=== PATIENT | female | born 1990 | race African-American/Black ===

== ENCOUNTER 2019-03-10 08:57 | Inpatient (IN) | payer MEDICAID ==
[~2019-03-10] VITALS: Ht 162.6 cm; Wt 81.8 kg
[~2019-03-10 08:57] MED LIST: FERROUS SULFAT325 MG PO; IBUPROFEN600 MG PO; PERCOCET 10/3251 TA1 PO; PRENAVITE1 TAB PO
[2019-03-11] VITALS (9 sets, daily range): BP systolic 100–125; BP diastolic 50–80; Ht 162.6 cm; Wt 81.8 kg
[2019-03-11 07:14] LABS: HEMATOCRIT 31.8 % (36.0-48.0); HEMOGLOBIN 10.4 g/dL (12-16); MCH 31.9 pg (26.0-34.0); MCHC 32.7 g/dL (31.0-37.0); MCV 97.5 fL (80.0-100.0); MEAN PLATELET VOLUME 11.1 fL (7.4-10.4); RBC 3.26 10x6/uL (4.00-5.40); WBC 8.1 10x3/uL (4.8-10.8)
--- NOTE | 2019-03-11 12:06 | NUR ---
BLOOD GAS AND CORD BLOOD DRAWN
--- NOTE | 2019-03-11 12:37 | NUR ---
BABY BOY 1201 PLACENTA 1202
--- NOTE | 2019-03-11 13:19 | NUR ---
MEETS ANESTHESIA DISCHARGE CRITERIA
--- NOTE | 2019-03-11 13:34 | NUR ---
to room 1218 via bed from rr. pt awake and alert. verbal responses appro to questions. denies pain - states legs are numb still. fundus uu/firm. scant lochia noted on pad. abd dressing cd&i. ice cap to abd. nino cath intact with yellow urine in container. iv saline lock rt arm. iv fluids of 1000cc ns with 20 units of pitocin infusing at 125cc/hr into lt hand. scd's on.
--- NOTE | 2019-03-11 13:54 | NUR ---
FUNDUS REMAINS UU/FIRM. SMALL LOCHIA NOTED ON PAD.
--- NOTE | 2019-03-11 14:05 | NUR ---
FUNDUS UU/FIRM. SMALL LOCHIA NOTED ON PAD. FAMILY AT BEDSIDE. IN MOTHERS ARMS.
--- NOTE | 2019-03-11 14:39 | NUR ---
STATES IS STILL NUMB. DENIES PAIN.
--- NOTE | 2019-03-11 15:00 | NUR ---
AWAKE AND SITTING UP IN BED. HOB LOWERED. FUNDUS UU/FIRM. SCANT LOCHIA NOTED ON PAD. PAD CHANGED. STATES THAT LEGS REMAIN NUMB.
--- NOTE | 2019-03-11 15:42 | NUR ---
FUNDUS UU/FIRM. SCANT LOCHIA NOTED ON PAD. CONT UNABLE TO MOVE LEGS- NUMB.
--- NOTE | 2019-03-11 16:54 | NUR ---
REPORT OF DECREASED URINE OUTPUT TO DR BOYD. ALSO INFORMED THAT PT STATES LEGS ARE STILL NUMB ALTHOUGH ABLE TO MOVE FEETS SOME NOW- NEW ORDERS RECEIVED.
--- NOTE | 2019-03-11 17:00 | NUR ---
CO STARTING TO HURT AT INCISION. FUNDUS UU/FIRM. SCANT LOCHIA NOTED ON PAD. RATES PAIN A 3 ON SCALE OF 0-10. MORPHINE 2MG IV GIVEN.
--- NOTE | 2019-03-11 17:21 | NUR ---
baby in arms. lr bolus started.
--- NOTE | 2019-03-11 18:00 | NUR ---
small lochia noted on pad. no clots. fundus uu and firm. inocencia care done. pt rolled from side to side and pads changed. no requests.
--- NOTE | 2019-03-11 19:30 | NUR ---
PM ROUNDS MADE, PT WATCHING TV, INFORMED PT THAT I WILL BE IN SHORTLY TO DO ASSESSMENT, PT VERBALIZES UNDERSTANDING, REQUESTED AND SERVED FRESH H20, RATES INC PAIN 07/27, DENIES FURTHER NEEDS AT THIS TIME
--- NOTE | 2019-03-11 20:23 | NUR ---
PT BOTTLE FEEDING INFANT AT THIS TIME, WILL COME BACK TO DO ASSESSMENT, PT DENIES NEEDS AT THIS TIME
--- NOTE | 2019-03-11 21:05 | NUR ---
ASSESSMENT PER FLOW SHEET PER THIS RN AND DIVYA TOVAR, RN, VS OBTAINED, IV IN LEFT HAND INTACT WITH NO REDNESS OR EDEMA INFUSING NS WITH PITOCIN AT 125 ML/HR, FF, ML, U/U, LITE BLEEDING NOTED WITH NO CLOTS, BIKINI INC WITH DRESSING CDI WITH NO DRAINAGE NOTED, FRESH ICE PACK TO ABD, ZIEGLER CATH INTACT DRAINING YELLOW URINE, PT DENIES FLATUS, SCD'S ON AND WORKING PROPERLY, PT C/O INC PAIN, WILL ADM PAIN MED
--- NOTE | 2019-03-11 21:12 | NUR ---
ADM MORPHINE SIVP PER MD ORDERS, SEE EMAR
--- NOTE | 2019-03-11 22:30 | NUR ---
PT AWAKE, INFANT IN OPEN CRIB CART AT BEDSIDE, RATES INC PAIN 2/, REQUESTED AND SERVED FRESH H20 AND JELLO, DENIES FURTHER NEEDS
[2019-03-12 00:40] VITALS: BP 110/72
--- NOTE | 2019-03-12 00:40 | NUR ---
IV BEEPING, THIS RN AND DIVYA TOVAR, RN TO ROOM, VS OBTAINED, NEW BAG OF NS WITH PITOCIN HUNG INFUSING VIA PUMP AT 125 ML/HR AND TORADOL ADM SIVP, PER MD ORDERS, SEE EMAR, ZIEGLER CATH EMPTIED, MARIO CARE DONE WITH WET WARM WASH CLOTHS, LITE BLEEDING NOTED WITH NO CLOTS, MARIO PAD CHANGED, FRESH ICE PACK TO ABD, SCD'S CONTINUE ON AND WORKING PROPERLY, DENIES FURTHER NEEDS
--- NOTE | 2019-03-12 02:30 | NUR ---
PT RESTING WITH EYES CLOSED, RESP QUIET, NO DISTRESS NOTED, LEFT UNDISTURBED AT THIS TIME
[2019-03-12 04:35] VITALS: BP 107/82
--- NOTE | 2019-03-12 04:35 | NUR ---
PT AWAKE AND RESTING IN BED. VS OBTAINED, IO COLLECTED, PERICARE DONE WITH WET WARM WASHCLOTH. LIGHT BLEEDING NOTED WITH NO CLOTS. PERIPAD AND WHITE CHUX CHANGED. FRESH ICE PACKS TO ABDOMEN. SCDS CONTINUED ON AND WORKING PROPERLY. PT REQUESTED AND SERVED FRESH H2O. PT RATES INCISIONAL PAIN 4/10. WILL ADMINISTER PAIN MEDICATION.
--- NOTE | 2019-03-12 04:42 | NUR ---
ADMINISTER MORPHINE SIVP PER MD ORDERS. SEE EMAR.
--- NOTE | 2019-03-12 05:40 | NUR ---
LAB IN ROOM FOR AM BLOOD DRAW
--- NOTE | 2019-03-12 05:50 | NUR ---
PT HOLDING INFANT, RATES INC PAIN 2, DENIES NEEDS AT THIS TIME
[2019-03-12 06:30] LABS: BASOPHILS 0.1 % (0-2); EOSINOPHILS 0.2 % (0-7); HEMATOCRIT 26.6 % (36.0-48.0); HEMOGLOBIN 8.8 g/dL (12-16); IMMATURE GRANULOCYTES 0.3 % (0-5); LYMPHOCYTES 17.2 % (15-50); MCH 32.6 pg (26.0-34.0); MCHC 33.1 g/dL (31.0-37.0); MCV 98.5 fL (80.0-100.0); MONOCYTES 6.6 % (2-11); NEUTROPHILS 75.6 % (40-80); PLATELET COUNT 177 10x3/uL (130-400); RDW 13.9 % (11.5-14.5); WBC 9.6 10x3/uL (4.8-10.8)
[2019-03-12 07:13] LABS: RAPID PLASMA REAGIN Non Reactive (Non Reactive)
[2019-03-12 07:30] VITALS: BP 105/55
--- NOTE | 2019-03-12 07:30 | NUR ---
RECEIVED PT LYING IN SEMI-GROVER'S POSITION IN BED. AWAKE. AAO X 3. VSS. HRRR WITHOUT AUDIBLE MURMUR. BBS CLEAR. BS X 4. ABDOMEN SOFT/NON-DISTENDED. FUNDUS FIRM AT U/U. RUBRA LOCHIA SCANT AMT. PERIPAD CHANGED WITH NO CLOTS NOTED. ABDOMINAL DRESSING DRY WITHOUT DRAINAGE NOTED. NEG HOMANS' SIGN. PPP. NO EDEMA NOTED TO BLE. SCDS ON BLE. PUMP ON. PIV OF NS WITH PITOCIN INFUSING AT 125 ML/HR TO LEFT HAND. SITE CLAER. PT STATES INCISIONAL PAIN OF "2" ON 0-10 PAIN SCALE. STATES PAIN MED RELIEVING PAIN. ZIEGLER CATHETER TO GRAVITY DRAINING DARK, YELLOW URINE. PT DENIES NEEDS OR C/O. SR UP X 2. CALL LIGHT IN REACH. INFANT PLACED IN PT ARMS PER REQUEST.
--- NOTE | 2019-03-12 08:15 | NUR ---
DR BOYD ON UNIT. NOTIFIED OF PT OUTPUT. VISITS WITH PT. ORDERS RECEIVED.
--- NOTE | 2019-03-12 09:00 | NUR ---
PT SITTING UP IN BED. CONSUMING BREAKFAST. DENIES C/O OR NEEDS.
--- NOTE | 2019-03-12 09:15 | NUR ---
ZIEGLER DC'D WITH 200 ML OF CONCENTRATED YELLOW URINE NOTED IN BAG. PIV CONVERTED TO SALINE LOCK. FLUSHES EASILY WITH 10 ML NS. SITE CLEAR. PT OOB AND AMB TO SHOWER. BED LINENS CHANGED. PT ROSE MARIE ACTIVITY WELL.
--- NOTE | 2019-03-12 09:30 | NUR ---
PT FINISHED WITH SHOWER. ASSISTED WITH GOWN, PANTIES AND PAD. PT BACK TO BED. INCISION WITHOUT REDNESS, SWELLING OR DRAINAGE NOTED. PERIPAD TO INCISION. PT ROSE MARIE ACTIVITY WELL. DENIES C/O OR NEEDS.
--- NOTE | 2019-03-12 10:06 | NUR ---
PT SITTING UP IN BED. CARING FOR INFANT. DENIES PAIN OR NEEDS.
--- NOTE | 2019-03-12 11:09 | NUR ---
PT SITTING UP IN BED. CARING FOR INFANT. REQUESTS AND RECEIVES ICE WATER.
--- NOTE | 2019-03-12 11:25 | NUR ---
PT OOB AND AMB TO BR. VOIDS 500 ML OF CLOUDY, YELLOW URINE. PERICARE DONE PER PT. NO VAGINAL DISCHARGE NOTED ON PERIPAD. PT AMB BACK TO BED. ROSE MARIE ACTIVITY WELL. C/O INCISIONAL PAIN OF "2" ON 0-10 PAIN SCALE. PERCOCET 5/325 GIVEN PO ORDERED. PT INSTRUCTED ON MED. VERBALIZES UNDERSTANDING.
[2019-03-12 13:25] VITALS: BP 101/55
--- NOTE | 2019-03-12 14:55 | NUR ---
PT OOB AND AMB TO BR. VOIDS 600 ML OF CLOUDY, YELLOW URINE. NO VAGINAL DISCHARGE NOTED ON PERIPAD. PT AMB BACK TO BED. ROSE MARIE ACTIVITY WELL.
--- NOTE | 2019-03-12 17:04 | NUR ---
PT OOB AND AMB TO BR. VOIDS 500 ML OF CLOUDY, YELLOW URINE. NO VAGINAL DISCHARGE NOTED ON PERIPAD. PT BACK TO BED. ROSE MARIE ACTIVITY WELL. DIETARY MESSAGE SENT PER PT REQUEST FOR CHICKEN STRIPS AND MASHED POTATOES WITH GRAVY.
--- NOTE | 2019-03-12 17:55 | NUR ---
PT TRANSFERED VIA AMBULATORY TO ROOM 1276. PT TO BED. ORIENTED TO ROOM, BED, AND CALL LIGHT. SR UP X 2. CALL LIGHT IN REACH.
--- NOTE | 2019-03-12 17:58 | NUR ---
PT C/O ABDOMINAL SORENESS OF "2" ON 0-10 PAIN SCALE. PERCOCET 5/325 GIVEN PO ORDERED. PT INSTRUCTED ON MED. VERBALIZES UNDERSTANDING.
--- NOTE | 2019-03-12 18:35 | NUR ---
PT SITTING UP IN BED. WATCHES TV. DENIES NEEDS. MOTRIN GIVEN PO ORDERED.
--- NOTE | 2019-03-12 19:00 | NUR ---
BEDSIDE SHIFT REPORT COMPLETED WITH TIANNA MYRICK AT THIS TIME. CARE ASSUMED OF PATIENT BY THIS RN
[2019-03-12 19:29] VITALS: BP 111/62
--- NOTE | 2019-03-12 19:29 | NUR ---
PATIENT LYING IN BED WITH EYES OPEN, TO BEDSIDE PER ELVIA VIA OPEN CRIB AT THIS TIME. SHIFT ASSESSMENT COMPLETED, SEE FLOWSHEET. PT DENIES NEEDS, BED LOCKED IN LOW POSITION, CALL MARMOLEJO AND TRAY TABLE IN REACH AND SIDE RAILS UPX2. PT ENCOURAGE TO CALL WITH ANY NEEDS. WILL CONTINUE TO MONITOR
--- NOTE | 2019-03-12 23:23 | NUR ---
INFANT TO MOTHERS ROOM VIA OPEN CRIB AT THIS TIME. ID VERIFIED. NO NEEDS IDENTIFIED, PT ENCOURAGED TO CALL WITH ANY NEEDS. WILL CONTINUE TO MONITOR
--- NOTE | 2019-03-13 00:35 | NUR ---
ADMINISTERED MOTRIN 600MG PER MD ORDERS. SEE EMAR
--- NOTE | 2019-03-13 01:32 | NUR ---
TIANNA PINEDA IN TO PATIENTS ROOM, PT DENIES NEEDS AT THIS TIME. TO NURSERY VIA OPEN CRIB.
--- NOTE | 2019-03-13 03:58 | NUR ---
PT RESTING QUIETLY WITH EYES CLOSED, RESPIRATIONS EVEN AND NON LABORED. NO DISTRESS NOTED. WILL CONTINUE TO MONITOR
[2019-03-13 09:15] VITALS: BP 103/55
--- NOTE | 2019-03-13 09:24 | NUR ---
ASSESSMENT COMPLETE. SITTING UP IN BED WATCHING TV. DENIES NEEDS AT THIS TIME. STATES HAS PASSED SOME GAS THIS AM.
--- NOTE | 2019-03-13 12:11 | NUR ---
SITTING UP IN BED- DENIES NEEDS.
--- NOTE | 2019-03-13 12:15 | NUR ---
PT STATES THAT SHE GOT T-DAP VACCINE AND FLU SHOT AT MD OFFICE.
--- NOTE | 2019-03-13 13:28 | OP ---
PATIENT NAME: MEENU BONDS MEDICAL RECORD: [id number] LOCATION:[id number] ADMISSION DATE:03/11/19 SURGEON: LOUISE BOYD DO DATE OF OPERATION: 03/11/2019 PREOPERATIVE DIAGNOSIS: Repeat section; multiparity, desire for permanent sterilization. POSTOPERATIVE DIAGNOSIS: Repeat section; multiparity, desire for permanent sterilization. PRIMARY SURGEON: Louise Boyd DO ANESTHESIA: Dr. Gloria CRNA. PROCEDURE: Repeat low transverse section via Pfannenstiel incision bilateral tubal ligation. FINDINGS: Viable male , weight 7 pounds 1 ounce, delivered in vertex position at 12:01 p.m. with Apgars of 8 and 9. Normal bilateral tubes and ovaries, normal-appearing uterus. SPECIMENS: Placenta and cord. ESTIMATED BLOOD LOSS: 800 mL. IV FLUIDS: 2900 cc. URINE OUTPUT: 400 cc clear urine. COMPLICATIONS: None. CONDITION: Stable. PROCEDURE: The risks, benefits, alternatives and indications of the procedure were discussed with the patient. She voiced understanding of the procedure and signed the consent. She expressed desire for permanent sterility, understood that tubal ligation is not reversible and wished to proceed. She was taken to the OR where spinal anesthesia was administered and found to be adequate. She was placed in the dorsal supine position with a leftward tilt. She was prepped and draped in the normal sterile fashion. A Pfannenstiel skin incision was made with the scalpel and carried down to the underlying layer of the fascia with the Bovie. The fascia was incised with the midline and extended laterally. The inferior aspect of the fascial incision was grasped with Colby clamps and the rectus muscle was dissected off sharply. Attention was then turned to the superior aspect of the fascial incision. The rectus muscle was dissected off in a similar fashion. The rectus muscle was grasped with 2 Allises and down to the level of peritoneum with a scalpel. The peritoneum was identified and noted to be free of adherent bowel and entered bluntly. The peritoneum was further with gentle traction. The bladder blade was inserted. The uterus was incised in a transverse fashion lower uterine segment. The incision was extended with cephalad caudad traction. The infant's head was brought to the incision and the infant delivered without difficulty. Mouth and nose were suctioned. Cord was clamped and cut and the was handed off to awaiting pediatricians. The placenta was manually removed. The uterus was exteriorized OPERATIVE REPORT [id number] MEENU BONDS and a moist lap was used to assure complete removal of placental membranes. The hysterotomy was closed with 0 Vicryl in a running locked fashion with good hemostasis noted. The right tube was grasped with a Sumner and was ligated via modified [place] technique with good hemostasis. The left tube was ligated in similar fashion with good hemostasis. The posterior cul-de-sac was irrigated with warm sterile saline. The uterus, tubes and ovaries were otherwise noted to be normal and returned back to the abdominal cavity. The hysterotomy was reinspected and noted to be hemostatic. The tubal ligation sites were reinspected and noted to be hemostatic. A moist laparotomy sponge was used to assure complete removal of blood clots and fluid from the abdominal cavity. The rectus muscle was closed with 2-0 Monocryl in a running fashion with good hemostasis noted. The fascial incision was closed with 0 Vicryl in a running fashion with good hemostasis. The subcutaneous fat was closed with 2-0 plain in a running fashion with good hemostasis. The skin was closed with 3-0 Monocryl in a subcuticular fashion with good hemostasis and Dermabond covering. All needle, lap, sponge, and instrument counts were correct times 2. The patient tolerated the procedure well, and she was taken to the recovery room in stable condition. TRANSINT:[id number] Voice Confirmation ID: [id number] DOCUMENT ID: [id number] LOUISE BOYD DO at 1328 CC: [id number] DICTATION DATE: 03/11/19 1526 GIS ANALYST: 03/11/192116 ADM IN [facility] [place] [id number] [place] [address]
[2019-03-13] MEDS ORDERED: PERCOCET 5-3251 TAB PO (13:55)
--- NOTE | 2019-03-13 14:25 | NUR ---
pt states she is ready to go home. sign other at bedside. discharge inst verbal and written given. script x1, pt med rec and drug data info given. pfw post and post op inst given. awhonn inst given. see also discharge inst sign sheet for other inst given. pt health summary given. pt denies questions.
--- NOTE | 2019-03-13 14:49 | NUR ---
discharge with . to auto via w/c.
== END 2019-03-13 14:49 | disposition home or self-care (01) | DRG 785 ==
LOC: D.LD 03-11 05:50 → D.WS 03-11 05:50 → D.LD 03-11 08:30 → D.WS 03-11 13:17 → D.LD 03-12 17:55
PROVIDERS: ADMIT Student in an Organized Health Care Education/Training Program; ATTEND Student in an Organized Health Care Education/Training Program
PROC: 0UT70ZZ Resection of Bilateral Fallopian Tubes, Open Approach (ICD-10-PCS; 2019-03-11)
PROC: 10D00Z1 Extraction of Products of Conception, Low, Open Approach (ICD-10-PCS; principal; 2019-03-11 09:00)
DX: O34.211 Maternal care for low transverse scar from previous cesarean delivery (principal); Z3A.39 39 weeks gestation of pregnancy; Z37.0 Single live birth; Z30.2 Encounter for sterilization; Z30.09 Encounter for other general counseling and advice on contraception